=== PATIENT | male | born 1960 | race Caucasian/White ===

== ENCOUNTER 2023-02-27 18:43 | Inpatient (IN) | payer OTHER, MEDICAID ==
[~2023-02-27] VITALS: Ht 172.7 cm; Wt 67.1 kg
[2023-02-27] MEDS: NACL 0.9% 1,000 ML IV SCH (01:33)
[2023-02-27 18:47] VITALS: BP 143/74; PULSE 130; RESP 24; TEMP 101; O2SAT 100
--- NOTE | 2023-02-27 18:47 | NUR ---
BIBA TO BED #4
--- NOTE | 2023-02-27 18:47 | NUR ---
PT PLACED IN BED 04
[2023-02-27] MEDS ORDERED: ACETAMINOPHEN 650 MG SUPP RC ONE (19:15)
[2023-02-27] MEDS ORDERED: NACL 0.9% 2,000 ML IV SCH (19:15)
[2023-02-27] MEDS ORDERED: PIPERACILLIN/TAZOBACTAM 3.375 GM in DEXTROSE 5% 50 ML IV ONE (19:15)
--- NOTE | 2023-02-27 19:27 | NUR ---
Patient noted to have existing wounds upon arrival to ER. Photos taken of wound and placed in chart. Physician informed.
[2023-02-27 19:32] LABS: BASOPHILS % (AUTO) 0.3 % (0.0-2.0); EOSINOPHILS % (AUTO) 0.3 % (0.0-4.0); HEMATOCRIT 38.9 % (36-52); HEMOGLOBIN 13.2 g/dL (12.0-18.0); LYMPHOCYTES # (AUTO) 1.8 K/uL (2.0-11.5); LYMPHOCYTES % (AUTO) 11.3 % (20.5-51.1); MEAN CORPUSCULAR HEMOGLOBIN 27 pg (27-31); MEAN CORPUSCULAR HGB CONC 34 g/dL (33-37); MEAN CORPUSCULAR VOLUME 79.8 fL (80-94); MONOCYTES # (AUTO) 0.8 K/uL (0.8-1.0); MONOCYTES % (AUTO) 5.1 % (1.7-9.3); NEUTROPHILS # (AUTO) 12.8 K/uL (1.8-7.7); PLATELET COUNT (AUTO) 411 K/uL (140-450); RED BLOOD CELL COUNT(AUTO) 4.88 MIL/uL (4.20-6.10); RED CELL DISTRIBUTION WIDTH 16.1 % (11.6-13.7); WHITE BLOOD COUNT (AUTO) 15.5 K/uL (4.8-10.8)
--- NOTE | 2023-02-27 19:32 | NUR ---
62 Y/O M[facility], STAFF CALLED [facility] FOR PT TO BE EVALUATED FOR SEPSIS DUE TO "FEVER FOR 15 MINUTES TODAY". SKIN IS PINK/HOT/DIAPHORETIC; PT RESPONDS TO PAIN/ABNORMAL FLEXION/NONVERBAL. HR EVEN AND TACHY AT 130; PT HAS WOUND ON LEFT ANKLE, UNSTAGEABLE, PT HAS REDNESS ON SACRAL AREA. PT HAS GASTROSTOMY TUBE IN PLACE WITH ABD BINDER. PATIENT POSITIONED FOR COMFORT; HOB ELEVATED; BEDRAILS UP X2; BED DOWN. ER MD MADE AWARE OF PT STATUS. PMH: TRAUMATC SUBDURAL HEMORRHAGE, CELLULITIS FACE, HTN, GASTROSTOMY, CORONARY ANGIOPLASTY, ENCEPHALOPATHY NKA
--- NOTE | 2023-02-27 19:35 | NUR ---
Patient resting in bed, awake and confused, chest rise and fall symmetrical, no s/s of pain and no s/s of distress, on monitor. Addendum: 02/28/23 at 0045 by [id number] Patient resting in bed, awake and confused, chest rise and fall symmetrical, no s/s of pain and no s/s of distress, on monitor, g-tube flushed and patent.
--- NOTE | 2023-02-27 19:35 | NUR ---
X-Ray at bedside.
--- NOTE | 2023-02-27 19:39 | NUR ---
Pt report given to JUSTINA JUSTIN. Transfer of care at this time.
[2023-02-27 19:48] LABS: PROTHROMBIN TIME 10.6 secs (10.8-13.4)
[2023-02-27 19:49] LABS: ANION GAP 16.1 (8-16); CARBON DIOXIDE 23.8 mmol/L (21-32); CREATININE 0.7 mg/dL (0.6-1.3); POTASSIUM 3.9 mmol/L (3.5-5.1); TOTAL BILIRUBIN 0.8 mg/dL (0.0-1.0)
[2023-02-27] MEDS ORDERED: PIPERACILLIN/TAZOBACTAM 3.375 GM VIAL IV ONE (20:16)
[2023-02-27 20:19] LABS: APPEARANCE,URINE CLEAR (CLEAR); BILIRUBIN,URINE NEGATIVE (NEGATIVE); BLOOD, URINE 2+ (NEGATIVE); COLOR,URINE YELLOW (YELLOW); LEUKOCYTE ESTERASE ,URINE NEGATIVE (NEGATIVE); NITRITE, URINE NEGATIVE (NEGATIVE); PH,URINE 6.5 (5.0-9.0); UGLUCOSE NEGATIVE (NEGATIVE)
[2023-02-27 20:29] LABS: RBC,URINE 20-50 /HPF (0-5); URINE AMORPHOUS URATE 2+ /HPF (None Seen)
[2023-02-27] MEDS ORDERED: THIA100T45 PO (21:52)
[2023-02-27] MEDS ORDERED: [UNRECOGNIZED DRUG - CODE] INH (21:52)
[2023-02-27] MEDS ORDERED: SENN-72 PO (21:52)
[2023-02-27] MEDS ORDERED: PUL.25N NEB (21:52)
[2023-02-27] MEDS ORDERED: DOCU-299 PO (21:52)
[2023-02-27] MEDS ORDERED: FAMO-90 PO (21:52)
[2023-02-27] MEDS ORDERED: MULT-2171 PO (21:52)
[2023-02-27] MEDS ORDERED: ACET-8905 PO (21:52)
[2023-02-27] MEDS ORDERED: PROP20TA29 PO (21:52)
--- NOTE | 2023-02-27 22:04 | NUR ---
Dr. Padron at bedside speaking with patient's .
--- NOTE | 2023-02-27 23:00 | NUR ---
Patient resting in bed, awake, chest rise and fall symmetrical, no s/s of pain and no s/s of distress, on monitor. Addendum: 02/28/23 at 0046 by [email or web address] Amendment undone in EDM - 02/28/23 at 0047 by [email or web address] Patient resting in bed, awake and confused, chest rise and fall symmetrical, no s/s of pain and no s/s of distress, on monitor. Addendum: 02/28/23 at 0046 by [email or web address] Patient resting in bed, awake, chest rise and fall symmetrical, no s/s of pain and no s/s of distress, on monitor, gtube flushed and patent.
[2023-02-27] MEDS ORDERED: NACL 0.9% 1,000 ML IV ONE (23:10)
[2023-02-27] MEDS ORDERED: guaiFENesin DM 200/20 MG-10 ML 10 ML UDC PO PRN ×2 (23:20→23:30)
[2023-02-27] MEDS ORDERED: NACL 0.9% 1,000 ML IV SCH (23:20)
[2023-02-27] MEDS ORDERED: DOCUSATE SODIUM 100 MG GELCAP PO PRN ×2 (23:20→23:30)
[2023-02-27] MEDS ORDERED: ONDANSETRON 4 MG/2 ML VIAL IM/IVP PRN ×2 (23:20→23:30)
[2023-02-27] MEDS ORDERED: ACETAMINOPHEN 325 MG TAB PO PRN ×2 (23:20→23:30)
[2023-02-27] MEDS ORDERED: ZOLPIDEM 5 MG TAB PO PRN ×2 (23:20→23:30)
[2023-02-27] MEDS ORDERED: POTASSIUM CHLORIDE 10 MEQ TABER PO PRN ×2 (23:20→23:30)
[2023-02-27] MEDS ORDERED: HYDROcodone/APAP 7.5/325 MG 1 TAB PO PRN ×2 (23:20→23:30)
[2023-02-27] MEDS ORDERED: VANCOMYCIN PER PHARMACY MC ONE (23:25)
[2023-02-27] MEDS ORDERED: ALBUTEROL SULFATE/IPRATROPIU 3 ML SOL IH PRN ×2 (23:30→23:45)
[2023-02-27 23:48] LABS: MAGNESIUM 1.6 mg/dL (1.8-2.4); PHOSPHORUS 4.6 mg/dL (2.5-4.9)
--- NOTE | 2023-02-28 00:03 | NUR ---
Patient resting in bed, awake, chest rise and fall symmetrical, no s/s of pain and no s/s of distress, on monitor. Addendum: 02/28/23 at 0047 by [email or web address] Patient resting in bed, awake, chest rise and fall symmetrical, no s/s of pain and no s/s of distress, on monitor, gtube flushed and patent.
[2023-02-28 00:30] VITALS: PULSE 89; RESP 18; O2SAT 94
--- NOTE | 2023-02-28 00:30 | NUR ---
PT WAS ADMITTED TO [facility] DEPARTMENT FROM [facility] WITH DIAGNOSIS OF SEPSIS SECONDARY TO PNA. PT IS NON-VERBAL, WITH DURING THE TRANSFER, BEDBOUND AND ABLE TO FOLLOW COMMAND. PT IS ON 2L NC AND ON NPO EXCEPT MEDS DIET. PT HAS CANADA CATHETER, G-TUBE AND TRAY DELIVERY AIDE SHUNT. PT HAS LEFT HAND GAUGE 20 SALINE LOCK AND RIGHT FOREARM GAUGE 20 SALINE LOCK. PT HAS UNSTAGABLE ULCER ON LEFT HEEL, OPEN WOUND ON SACRAL, REDNESS ON LEFT BUTTOCKS AND SCAB ON UPPER BACK. SHAQ() WAS ASKED FOR THE ADMISSION QUESTION OF THE PT. PT WAS ORIENTED TO ROOM/HOSPITAL AND CALL LIGHT. ALL SAFETY MEASURES IMPLEMENTED, BED IN LOW POSITION, BED WHEELS ON LOCK AND CALL LIGHT WITHIN REACH.
--- NOTE | 2023-02-28 00:30 | NUR ---
Patient will be admitted to care of Dr. Stephen. Admited to Telemetry. Will go to room 108B. Belongings list completed. Report to Anuradha JUSTIN. Telemetry Nurse Anuradha JUSTIN verbalized understanding of report, no further questions.
[2023-02-28] MEDS ORDERED: PIPERACILLIN/TAZOBACTAM 3.375 GM VIAL IV ONE (02:40)
[2023-02-28] MEDS: PIPERACILLIN/TAZOBACTAM 3.375 GM in DEXTROSE 5% 50 ML IV SCH ×4 (02:54→20:08)
--- NOTE | 2023-02-28 02:54 | NUR ---
SCHEDULED AND PRESCRIBED MEDICATION WAS GIVEN TO PT PER MD ORDER. ALL SAFETY MEASURES IMPLEMENTED, BED IN LOW POSITION, BED WHEELS ON LOCK AND CALL LIGHT WITHIN REACH.
[2023-02-28] MEDS ORDERED: VANCOMYCIN 1GM/DEXT 5% PREMIX 200 ML IV SCH (03:30)
[2023-02-28 04:00] VITALS: BP 127/68; PULSE 82; PULSE 85; RESP 18; TEMP 98.2; O2SAT 97
--- NOTE | 2023-02-28 04:00 | NUR ---
MORNING CARE WAS DONE TO PT. CHANGED GOWN, LINENS AND BLANKET. ALSO, EMPTY THE CANADA CATHETER WITH 450ML. ALL SAFETY MEASURES IMPLEMENTED, BED IN LOW POSITION, BED WHEELS ON LOCK AND CALL LIGHT WITHIN REACH.
[2023-02-28 06:38] LABS: BASOPHILS % (AUTO) 0.2 % (0.0-2.0); EOSINOPHILS % (AUTO) 0.1 % (0.0-4.0); HEMATOCRIT 33.3 % (36-52); HEMOGLOBIN 10.6 g/dL (12.0-18.0); LYMPHOCYTES # (AUTO) 2.8 K/uL (2.0-11.5); LYMPHOCYTES % (AUTO) 13.5 % (20.5-51.1); MEAN CORPUSCULAR HEMOGLOBIN 26 pg (27-31); MEAN CORPUSCULAR HGB CONC 32 g/dL (33-37); MEAN CORPUSCULAR VOLUME 82.7 fL (80-94); MONOCYTES # (AUTO) 0.9 K/uL (0.8-1.0); MONOCYTES % (AUTO) 4.4 % (1.7-9.3); NEUTROPHILS # (AUTO) 17.2 K/uL (1.8-7.7); NEUTROPHILS % (AUTO) 81.8 % (42.2-75.2); PLATELET COUNT (AUTO) 334 K/uL (140-450); RED BLOOD CELL COUNT(AUTO) 4.02 MIL/uL (4.20-6.10); RED CELL DISTRIBUTION WIDTH 16.2 % (11.6-13.7)
[2023-02-28 06:47] LABS: ALBUMIN 2.3 g/dL (3.4-5.0); ANION GAP 13.5 (8-16); CARBON DIOXIDE 23.8 mmol/L (21-32); CREATININE 0.8 mg/dL (0.6-1.3); POTASSIUM 4.3 mmol/L (3.5-5.1); TOTAL BILIRUBIN 1.1 mg/dL (0.0-1.0)
[2023-02-28] MEDS ORDERED: ALBUTEROL SULFATE/IPRATROPIU 3 ML SOL IH SCH (07:00)
--- NOTE | 2023-02-28 07:21 | NUR ---
PT IS STABLE. ENDORSED PT TO MORNING SHIFT NURSE FOR CONTINUITY OF CARE.
--- NOTE | 2023-02-28 07:25 | NUR ---
GOT REPORT FROM NIGHT NURSE, PT SLEEPING.[id number]
[2023-02-28] MEDS: VANCOMYCIN 1,000 MG in DEXTROSE 5% 250 ML IV SCH ×2 (07:50→21:22)
[2023-02-28 08:00] VITALS: BP 137/75; PULSE 89; PULSE 91; RESP 18; TEMP 98.8; O2SAT 94; O2SAT 96
[2023-02-28] MEDS ORDERED: PIPERACILLIN/TAZOBACTAM 3.375 GM in DEXTROSE 5% 50 ML IV SCH ×4 (09:00)
[2023-02-28] MEDS ORDERED: VANCOMYCIN PER PHARMACY MC SCH ×2 (09:00)
[2023-02-28] MEDS ORDERED: PANTOPRAZOLE 40 MG TABEC PO SCH ×2 (09:00)
--- NOTE | 2023-02-28 09:04 | NUR ---
PATIENT HAS BEEN SCREENED AND CATEGORIZED HIGH NUTRITION RISK. PATIENT WILL BE SEEN WITHIN 1-2 DAYS OF ADMISSION. 02/28/23-03/01/[address]
[2023-02-28] MEDS ORDERED: PANTOPRAZOLE 40 MG INJ VIAL IVP SCH (10:37)
[2023-02-28 12:00] VITALS: BP 147/77; PULSE 89; PULSE 94; RESP 18; TEMP 99.7; O2SAT 95
[2023-02-28] MEDS: ALBUTEROL SULFATE/IPRATROPIU 3 ML SOL IH SCH ×2 (12:22→19:00)
[2023-02-28] MEDS: NACL 0.9% 1,000 ML IV SCH (14:01)
--- NOTE | 2023-02-28 15:59 | NUR ---
02/28/23 RD INITIAL ASSESSMENT COMPLETED PLEASE REFER TO NUTRITION ASSESSMENT UNDER CARE ACTIVITY FOR ESTIMATED NUTRITIONAL NEEDS. 1. CONTINUE NPO DIET TOLERATED AND ADVANCE TO PUREE ONCE MEDICALLY APPROPRIATE. IF PATIENT DOES WELL ADVANCE TO REGULAR DIET. 2. RD RECOMMENDS PO INTAKE ULTIMATE GOAL IF MEDICALLY APPROPRIATE. IF TUBE FEEDING RECOMMENDATION IS NEEDED PATIENT CAN BE ON JEVITY @60ML/HR WITH FWF OF 200ML Q6H. THIS WILL PROVIDE 1,728 CALORIES AND 77 GRAMS OF PROTEIN MEETING AT LEAST 75% OF ESTIMATED NUTRITIONAL NEEDS. 3. RD TO FOLLOW-UP 2-3 DAYS, HIGH RISK YESI COX RD
[2023-02-28 16:00] VITALS: BP 106/56; PULSE 77; PULSE 79; RESP 18; TEMP 98.6; O2SAT 99
--- NOTE | 2023-02-28 17:15 | NUR ---
did bedside swallow and patient passed the swallow evaluation had one cup of apple sauce and one pudding without any problem, the son at bedside.[email or web address]
--- NOTE | 2023-02-28 18:20 | NUR ---
pt experiencing sundown syndrome , started to cry while talking to his son, reassured comfort measures applied.[email or web address]
--- NOTE | 2023-02-28 19:27 | NUR ---
GAVE REPORT TO THE NIGHT NURSE, PT STABLE ,NO DISCOMFORT.[email or web address]
[2023-02-28] MEDS: BUDESONIDE 0.25 MG/2 ML NEBU INH SCH (19:30)
[2023-02-28 20:00] VITALS: BP 115/70; PULSE 82; PULSE 85; RESP 18; RESP 20; TEMP 98.8; O2SAT 94
[2023-02-28] MEDS ORDERED: ARFORMOTEROL TARTRATE INH SCH (21:00)
[2023-02-28] MEDS: DOCUSATE 100 MG/10 ML UDC GT SCH (22:21)
[2023-02-28] MEDS: PROPRANOLOL 20 MG TAB PO SCH (22:22)
[2023-02-28] MEDS ORDERED: VANCOMYCIN PER PHARMACY MC PRN (23:25)
[2023-03-01] VITALS (9 sets, daily range): BP systolic 100–132; BP diastolic 54–79; PULSE 74–117; RESP 16–20; TEMP 97.8–98.9; O2SAT 92–98
[2023-03-01] MEDS: NACL 0.9% 1,000 ML IV SCH ×3 (00:01→20:01)
[2023-03-01] MEDS: PIPERACILLIN/TAZOBACTAM 3.375 GM in DEXTROSE 5% 50 ML IV SCH ×4 (04:00→20:37)
--- NOTE | 2023-03-01 04:15 | NUR ---
STILL AWAKE - REFUSED AMBIEN - WILL CONT. TO MONITOR .
[2023-03-01] MEDS ORDERED: OLANZapine 5 MG TAB GT SCH ×2 (04:40→05:46)
--- NOTE | 2023-03-01 05:00 | NUR ---
BECOMES AGITATES , TRIED TO PULL OUT THE CANADA CATH , AND G TUBE , AND IV LINE , KEEP REMOVING THE O2 CANULLA - WILL RFER TO DR. MINER . Addendum: 03/01/23 at 0747 by Velma Marie RN AT 0555 - ZYPREXA 5MG / TAB GIVEN THRU G TUBE ORDERED , WILL CONT. TO MONITOR .
--- NOTE | 2023-03-01 05:46 | NUR ---
CAN'T SCAN THE ZYPREXA , WILL CALL TO PHARMACIST - WILL CONT. TO MONITOR .
[2023-03-01 06:42] LABS: BASOPHILS % (AUTO) 0.2 % (0.0-2.0); EOSINOPHILS # (AUTO) 0.2 K/uL (0-0.4); EOSINOPHILS % (AUTO) 2.3 % (0.0-4.0); HEMATOCRIT 32.4 % (36-52); HEMOGLOBIN 10.6 g/dL (12.0-18.0); LYMPHOCYTES # (AUTO) 1.4 K/uL (2.0-11.5); LYMPHOCYTES % (AUTO) 13.5 % (20.5-51.1); MEAN CORPUSCULAR HEMOGLOBIN 27 pg (27-31); MEAN CORPUSCULAR HGB CONC 33 g/dL (33-37); MEAN CORPUSCULAR VOLUME 81.7 fL (80-94); MONOCYTES # (AUTO) 0.8 K/uL (0.8-1.0); MONOCYTES % (AUTO) 7.8 % (1.7-9.3); NEUTROPHILS # (AUTO) 7.9 K/uL (1.8-7.7); NEUTROPHILS % (AUTO) 76.2 % (42.2-75.2); PLATELET COUNT (AUTO) 314 K/uL (140-450); RED BLOOD CELL COUNT(AUTO) 3.96 MIL/uL (4.20-6.10); WHITE BLOOD COUNT (AUTO) 10.3 K/uL (4.8-10.8)
[2023-03-01] MEDS: ALBUTEROL SULFATE/IPRATROPIU 3 ML SOL IH SCH ×3 (07:00→19:26)
[2023-03-01 07:01] LABS: ALBUMIN 2.4 g/dL (3.4-5.0); ANION GAP 11.6 (8-16); CARBON DIOXIDE 25.7 mmol/L (21-32); CREATININE 0.6 mg/dL (0.6-1.3); POTASSIUM 3.3 mmol/L (3.5-5.1); TOTAL BILIRUBIN 0.9 mg/dL (0.0-1.0)
--- NOTE | 2023-03-01 07:26 | NUR ---
ENDORSED PT FOR CONT. OF CARE .
--- NOTE | 2023-03-01 07:26 | NUR ---
ASSUMED CONTINUITY OF CARE. INITIAL ASSESSMENT DONE. RE-ORIENTED TO EVENTS AND SURROUNDINGS. HOB ELEVATED. KEEP COMFORTABLE ON BED. FALL PRECAUTION APPLIED. CALL LIGHT WITHIN REACH.
[2023-03-01] MEDS: BUDESONIDE 0.25 MG/2 ML NEBU INH SCH ×2 (07:30→19:26)
[2023-03-01] MEDS: VANCOMYCIN 1,000 MG in DEXTROSE 5% 250 ML IV SCH ×2 (08:04→20:38)
[2023-03-01] MEDS: MULTIVITAMIN 1 TAB GT SCH (08:51)
[2023-03-01] MEDS: DOCUSATE 100 MG/10 ML UDC GT SCH ×2 (08:51→20:37)
[2023-03-01] MEDS: THIAMINE 100 MG TAB GT SCH (08:51)
[2023-03-01] MEDS: POTASSIUM CHLORIDE 20% 40 MEQ/15 ML UDC GT PRN (08:52)
[2023-03-01] MEDS: PROPRANOLOL 20 MG TAB PO SCH ×2 (08:52→20:37)
[2023-03-01] MEDS ORDERED: SENNA 8.6 MG TAB GT PRN (09:00)
[2023-03-01] MEDS ORDERED: FAMOTIDINE 20 MG TAB PO SCH (09:00)
[2023-03-01] MEDS ORDERED: NON-FORMULARY ITEM (Multivitamin (Multiple Vitamins) 1 TAB) PO SCH (09:00)
[2023-03-01] MEDS: PANTOPRAZOLE 40 MG INJ VIAL IVP SCH (09:12)
--- NOTE | 2023-03-01 09:14 | NUR ---
DR. BRODY CAME AND SEEN PT..
--- NOTE | 2023-03-01 09:25 | NUR ---
WOUND CARE NURSE MARII CAME AND PROVIDED SKIN CARE AND WOUND CARE WITH ASSISTANCE FROM BRENDON MENA.
--- NOTE | 2023-03-01 11:22 | NUR ---
WOUND CARE NOTE: SKIN ASSESSMENT DONE ON THIS 62 Y/O PT. PT. ADMITTED WITH FEVER AND PRESSURE INJURIES. PAST MEDICAL HX OF TBI COMPLICATED BY SALES ENABLEMENT MANAGER SHUNT IN PLACE, HYPERTENSION, DYSPHAGIA WITH CHRONIC G-TUBE PLACEMENT AND PREVIOUSLY ADMITTED TO [facility] IN 12/2022 FOR SALES ENABLEMENT MANAGER SHUNT REPLACEMENT. ALL ABOVE INFORMATION OBTAIN FROM ADMISSION H&P, CHART REVIEW. PT. TF, SKIN IS WARM AND DRY, BILATERAL LOWER EXTREMITY NO EDEMA. DORSAL PEDAL PULSES PRESENT AND NORMAL. CAPILLARY REFILLED <2 SEC. F/C PATENT WITH SMALL AMOUNT BHAVIN COLOR URINE OUT PUT OBSERVED. GERDA SCALE AT HI RISK FOR DEVELOP NEW PRESSURE INJURY. PLAN OF CARE DISCUSSED WITH PRIMARY NURSE AND CHARGE NURSE. INTEGUMENTARY: -GT SITE, SABRINA-STOMA SKIN DRY AND CLEAN. 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 SURROUNDING NON-BLANCHABLE REDNESS EXTENDED TO LEFT BUTTOCK INDICATED FURTHER DAMAGE. -MASD TO RIGHT AND LEFT LOWER BUTTOCKS SKIN MOIST, LEFT BUTTOCK NON-BLANCHABLE REDNESS -PRESSURE INJURY UN-STAGEABLE LEFT HEEL 3X2CM STABLE ESCHAR TISSUE, SABRINA-WOUND SKIN DRY SCALY -BLE MULTIPLE DRY STABLE SCABS RECOMMENDATIONS: -CLEANSE SABRINA-ANAL AND BUTTOCKS WITH NS, PAT DRY, APPLY Z GUARD BID AND MICHELLE -CLEANSE COCCYX WOUNDS WITH NS, PAT DRY, APPLY HYDROGEL TO WOUND BED AND COVER WITH DRY DRESSING QD AND PRN IF SOILING -PAINT LEFT HEEL WITH BETADINE SWAP STICK BID AND KENO WRITER / RUNNER -HEEL RAISERS TO BILATERAL HEELS WITH OFFLOADING -POSITIONING: TURN AND REPOSITION PATIENT Q 2H OR SOONER USE PILLOWS TO KEEP BONY PROMINENCES FROM DIRECT CONTACT WITH SURFACES USE REPOSITIONING WEDGES TO PROVIDE 30-DEGREE ANGLE FOR SIDE LYING POSITIONS OFFLOADING OR FOAM DRESSING TO ALL TUBING TO PREVENT MEDICAL DEVICES RELATED PRESSURE INJURY -RE-EVALUATING AND MANAGING INCONTINENCE MONITOR SKIN CONDITION DURING POSITION CHANGE DO NOT MASSAGE REDNESS, BONY PROMINENCES FREQUENT SABRINA-CARE AND PROVIDE BARRIER CREAMS PRN IF SOILING MOISTURE CONTROL BY SUPRAPUBIC CATH, ABSORBENT PAD TO WICK AND HOLD MOISTURE KEEP SKIN DRY AND PROTECT FROM FRICTION -MANAGE FRICTION/SHEAR/MOBILITY KEEP HOB AT THE LOWEST LEVEL OF ELEVATION NO MORE THAN 30 DEGREE UNLESS OTHERWISE CONTRAINDICATED USE LIFT SHEET OR TRANSFER DEVICE TO MOVE PATIENT AND PREVENT LATERAL SHEER. PROTECT HEELS, ELBOWS BONY PROMINENCES WITH SKIN BERRIES OR FOAM DRESSING IF EXPOSED TO FRICTION OFFLOAD BILATERAL HEELS BY PLACING PILLOWS UNDER CALVES AT ALL TIMES, UNLESS OTHERWISE CONTRAINDICATED -PRESSURE REDISTRIBUTION SURFACE THERAPY PASTORA ISOFLEX GERSON MATTRESS -NUTRITION: PLEASE FOLLOW RD RECOMMENDATIONS AND OFFER NUTRITION SUPPLEMENTS IF ORDERED.
[2023-03-01] MEDS ORDERED: SKINTEGRITY HYDROGEL TP PRN (11:25)
--- NOTE | 2023-03-01 11:49 | NUR ---
DC PLANNING A 62 YO MALE PATIENT RESIDENT OF [facility] ADMITTED TO TELEMETRY FOR SEPSIS, PNEUMONIA ,DYSPHAGIA WITH G-TUBE AND SACRAL ULCER .PAST MEDICAL HX MANAGER GENERATION SHUNT REPLACEMENT AT [facility] 12/2022,HTN,DYSPHAGIA WITH CHRONIC G-TUBE PLACEMENT.CXR- SUGGESTIVE OF BILATERAL LUNG INFILTRATES CONCERNING FOR PNEUMONIA.ON ZOSYN AND VANCOMYCIN. HEAD CT SCAN -RIGHT OCCIPITAL MANAGER GENERATION SHUNT AND BILATERAL 3RD HYDROCEPHALUS.LEFT FOOT X RAY WITH SOFT TISSUE SWELLING.PODIATRY WAS CONSULTED. DC PLAN - WANTS TO TAKE PATIENT HOME .DR. BRODY NOTIFIED AND REQUESTED FOR ORDER FOR HOME HEALTH VISIT WITH PT AND NEED FOR HOSPITAL BED,JAY LIFT,WALKER AND OXYGEN SETUP.WOUND CARE ON BOARD WELL.CM TO FOLLOW. Addendum: 03/04/23 at 1250 by LIGIA VICK CM RECEIVED ORDER FOR PATIENT TO GET HOME HEALTH FOR WOUND CARE AND PT. WELL TO ORDER A JAY LIFT, HOSPITAL BED, WHEELCHAIR, BEDSIDE COMMODE, AIR MATTRESS, AND TUBE FEEDING SUPPLIES. FAXED ALL PAPERWORK [facility] Addendum: 03/04/23 at 1539 by DUANE LARSON CM DC PLANNING PATIENT IS AWAKE.RESPONDS APPROPRIATELY AT TIMES BUT FIDGETING.ON ROOM AIR.DAUGHTER AT BEDSIDE.ORDER FOR DISCHARGE IN PLACE PENDING DELIVERY OF EQUIPMENT AND FEEDING SUPPLEMENTS. AT BEDSIDE AND UPDATED OF PROGRESS OF ABOVE SUPPLIES. SISSY, FROM [facility] PROCESSING THE REQUEST.CM TO FOLLOW. Addendum: 03/05/23 at 1631 by DUANE LARSON CM DC PLANNING SISSY AND ANTONIO FROM [facility] WORKING ON GETTING HOSPITAL BED AND OTHER EQUIPMENT AND SUPPLIES FOR HOME CARE.TEAM NURSES TO DO HOME HEALTH VISIT AUTH #[id number] . SHAQ GETTING UPDATES FROM [facility] REGARDING ETA OF HOSPITAL BED AND OTHER DME.CM TO FOLLOW. Addendum: 03/06/23 at 1136 by LIGIA VICK CM RECEIVED DISCHARGE ORDER FOR PATIENT TO GO HOME. TRANSPORTATION ARRANGED WITH [facility] WITH A 1400 CROZE MACHINE OPERATOR TIME. CHARGE NURSE STELLA AND SHAQ AWARE OF THE ABOVE INFORMATION. Addendum: 03/06/23 at 1402 by DUANE LARSON CM DC PLANNING HOSPITAL BED, AIR MATTRESS, OTHER EQUIPMENT AND SUPPLIES REQUESTED BY DELIVERED LAST NIGHT AT PATIENT'S ADDRESS.HOME MEDS ELECTRONICALLY SIGNED BY DR. LOREDO AT [facility] [employer].CROZE MACHINE OPERATOR TIME BY [facility] AT 2PM.HOSPITAL STAY AUTH# [id number] PROVIDED BY JOANN AT [facility] FOLEY ARTIST TO ENTER AT [facility]. Addendum: 03/06/23 at 1430 by DUANE LARSON CM LATE ENTRY TEAM NURSES [facility] TO SEE PATIENT.WILL CALL TO INFORM PATIENT WILL BE DISCHARGED TODAY. Addendum: 03/06/23 at 1435 by DUANE LARSON LATE ENTRY ABOVE PHONE NUMBER IS [facility] FOR HOSPITAL BED ,AIR MATTRESS AND OTHER EQUIPMENTS.TEAM NURSES INFORMED OF PATIENT'S DISCHARGE..
[2023-03-01] MEDS: SKINTEGRITY HYDROGEL TP SCH (13:00)
[2023-03-01] MEDS ORDERED: Z-GUARD PASTE TP SCH (13:00)
[2023-03-01] MEDS: Z-GUARD PASTE TP SCH (13:00)
[2023-03-01] MEDS: GAUZE TP SCH (13:00)
--- NOTE | 2023-03-01 16:30 | NUR ---
PT. -SHAQ CAME AND REMAINED AT PT. BEDSIDE.
--- NOTE | 2023-03-01 18:42 | NUR ---
CAME BACK FROM [place] [facility]IA [place]. IN STABLE CONDITION. KEEP COMFORTABLE ON BED.
--- NOTE | 2023-03-01 19:21 | NUR ---
REPORT GIVEN TO STEPHAN PARKINSON. IN STABLE CONDITION. IVF INFUSING WELL.
--- NOTE | 2023-03-01 19:30 | NUR ---
RECEIVED REPORT FROM DAY SHIFT NURSE FOR CONTINUITY OF CARE. PT IS AWAKE RESTING IN BED. PT IS AAOX2 TO NAME AND DATE OF . CONFUSED OTHERWISE. NOT IN ANY DISTRESS. BREATHING EVEN AND UNLABORED. ON 2L NC. PT HAS RIGHT WRIST 20 GAUGE RUNNING NS 100 CC/HR. PT HAS GTUBE IN PLACE. PT PASSED SWALLOW EVAL AND IS ON [facility] SOFT DIET. PT HAS FC IN PLACE DRAINING TO GRAVITY.
[2023-03-02] VITALS (9 sets, daily range): BP systolic 110–142; BP diastolic 58–81; PULSE 70–82; RESP 16–20; TEMP 97.8–98.5; O2SAT 92–97
--- NOTE | 2023-03-02 00:15 | NUR ---
OBSERVED PT. PT IS SLEEPING COMFORTABLY IN BED. NOT IN ANY DISTRESS. BREATHING EVEN AND UNLABORED. WILL CONTINUE TO MONITOR THE PT.
[2023-03-02] MEDS: Z-GUARD PASTE TP SCH ×2 (01:05→15:58)
[2023-03-02] MEDS: NACL 0.9% 1,000 ML IV SCH ×2 (02:19→15:48)
[2023-03-02] MEDS: PIPERACILLIN/TAZOBACTAM 3.375 GM in DEXTROSE 5% 50 ML IV SCH ×4 (03:05→20:13)
[2023-03-02 06:43] LABS: BASOPHILS % (AUTO) 0.3 % (0.0-2.0); EOSINOPHILS # (AUTO) 0.4 K/uL (0-0.4); EOSINOPHILS % (AUTO) 4.9 % (0.0-4.0); HEMATOCRIT 31.4 % (36-52); HEMOGLOBIN 10.4 g/dL (12.0-18.0); LYMPHOCYTES # (AUTO) 1.6 K/uL (2.0-11.5); LYMPHOCYTES % (AUTO) 20.5 % (20.5-51.1); MEAN CORPUSCULAR HEMOGLOBIN 27 pg (27-31); MEAN CORPUSCULAR HGB CONC 33 g/dL (33-37); MEAN CORPUSCULAR VOLUME 81.3 fL (80-94); MONOCYTES # (AUTO) 0.8 K/uL (0.8-1.0); NEUTROPHILS # (AUTO) 5.1 K/uL (1.8-7.7); NEUTROPHILS % (AUTO) 64.3 % (42.2-75.2); PLATELET COUNT (AUTO) 337 K/uL (140-450); RED BLOOD CELL COUNT(AUTO) 3.86 MIL/uL (4.20-6.10); RED CELL DISTRIBUTION WIDTH 16.2 % (11.6-13.7); WHITE BLOOD COUNT (AUTO) 7.9 K/uL (4.8-10.8)
[2023-03-02] MEDS: ALBUTEROL SULFATE/IPRATROPIU 3 ML SOL IH SCH ×3 (07:11→19:14)
[2023-03-02] MEDS: BUDESONIDE 0.25 MG/2 ML NEBU INH SCH ×2 (07:12→19:14)
[2023-03-02 07:20] LABS: ALBUMIN 2.4 g/dL (3.4-5.0); ANION GAP 13.2 (8-16); CARBON DIOXIDE 23.2 mmol/L (21-32); CREATININE 0.6 mg/dL (0.6-1.3); POTASSIUM 3.4 mmol/L (3.5-5.1); TOTAL BILIRUBIN 0.9 mg/dL (0.0-1.0)
--- NOTE | 2023-03-02 07:22 | NUR ---
ENDORSED PT TO DAY SHIFT RN FOR CONTINUITY OF CARE. PT IS STABLE.
--- NOTE | 2023-03-02 07:23 | NUR ---
RECEIVED ENDORSEMENT FROM DYE TUB TENDER NURSE FOR CONTINUITY OF CARE. PT IS STABLE, CALL LIGHT WITHIN REACH.
[2023-03-02] MEDS: PROPRANOLOL 20 MG TAB PO SCH ×2 (08:22→21:19)
[2023-03-02] MEDS: MULTIVITAMIN 1 TAB GT SCH (08:22)
[2023-03-02] MEDS: THIAMINE 100 MG TAB GT SCH (08:22)
[2023-03-02] MEDS: DOCUSATE 100 MG/10 ML UDC GT SCH ×2 (08:22→21:19)
[2023-03-02] MEDS: PANTOPRAZOLE 40 MG INJ VIAL IVP SCH (08:23)
[2023-03-02] MEDS: VANCOMYCIN 1,000 MG in DEXTROSE 5% 250 ML IV SCH ×2 (08:30→21:19)
--- NOTE | 2023-03-02 15:00 | NUR ---
CALLED PHARMACY REGARDING SKINTEGRITY HYDROGEL'S BAR CODE. ZACHARY CAME TO CHECK AND INFORMED ME TO DO IT MANUALLY WHILE THEY FIX IT ON THEIR END.
[2023-03-02] MEDS: SKINTEGRITY HYDROGEL TP SCH (15:59)
[2023-03-02] MEDS: GAUZE TP SCH (17:41)
[2023-03-02] MEDS: POTASSIUM CHLORIDE 20% 40 MEQ/15 ML UDC GT PRN (18:27)
--- NOTE | 2023-03-02 19:04 | NUR ---
GAVE REPORT TO BIOMASS PLANT TECHNICIAN NURSE FOR CONTINUITY OF CARE. PT IS STABLE, NO SIGN OF DISTRESS. CALL LIGHT WITHIN REACH.
--- NOTE | 2023-03-02 19:30 | NUR ---
RECEIVED REPORT FROM DAY SHIFT NURSE FOR CONTINUITY OF CARE. PT IS AWAKE RESTING IN BED. PT IS AAOX2 TO NAME AND DATE OF . CONFUSED OTHERWISE. NOT IN ANY DISTRESS. BREATHING EVEN AND UNLABORED. ON RA SATING 97%. PT HAS RIGHT WRIST 20 GAUGE RUNNING NS 100 CC/HR. PT HAS GTUBE IN PLACE. PT HAS FC IN PLACE DRAINING TO GRAVITY. POC DISCUSSED. WILL CONTINUE TO MONITOR THE PT.
[2023-03-02] MEDS ORDERED: PIPERACILLIN/TAZOBACTAM 3.375 GM VIAL IV ONE (20:02)
[2023-03-03] VITALS (11 sets, daily range): BP systolic 107–144; BP diastolic 59–72; PULSE 63–91; RESP 15–18; TEMP 97.7–98.8; O2SAT 92–99
[2023-03-03] MEDS: NACL 0.9% 1,000 ML IV SCH ×3 (02:01→23:36)
[2023-03-03] MEDS: Z-GUARD PASTE TP SCH ×2 (02:01→13:00)
[2023-03-03] MEDS: PIPERACILLIN/TAZOBACTAM 3.375 GM in DEXTROSE 5% 50 ML IV SCH ×4 (03:11→20:00)
--- NOTE | 2023-03-03 03:20 | NUR ---
OBSERVED PT. PT IS SLEEPING COMFORTABLY IN BED. NOT IN ANY DISTRESS. BREATHING EVEN AND UNLABORED. BED AT THE LOWEST POSITION. HEAD OF THE BED RAISED. WILL CONTINUE TO MONITOR THE PT.
[2023-03-03 06:35] LABS: BASOPHILS % (AUTO) 0.3 % (0.0-2.0); EOSINOPHILS # (AUTO) 0.3 K/uL (0-0.4); EOSINOPHILS % (AUTO) 4.1 % (0.0-4.0); HEMATOCRIT 31.9 % (36-52); HEMOGLOBIN 10.6 g/dL (12.0-18.0); LYMPHOCYTES # (AUTO) 1.9 K/uL (2.0-11.5); LYMPHOCYTES % (AUTO) 24.1 % (20.5-51.1); MEAN CORPUSCULAR HEMOGLOBIN 27 pg (27-31); MEAN CORPUSCULAR HGB CONC 33 g/dL (33-37); MEAN CORPUSCULAR VOLUME 81.1 fL (80-94); MONOCYTES # (AUTO) 0.8 K/uL (0.8-1.0); MONOCYTES % (AUTO) 10.4 % (1.7-9.3); NEUTROPHILS # (AUTO) 4.8 K/uL (1.8-7.7); NEUTROPHILS % (AUTO) 61.1 % (42.2-75.2); PLATELET COUNT (AUTO) 371 K/uL (140-450); RED BLOOD CELL COUNT(AUTO) 3.93 MIL/uL (4.20-6.10); RED CELL DISTRIBUTION WIDTH 15.9 % (11.6-13.7); WHITE BLOOD COUNT (AUTO) 7.9 K/uL (4.8-10.8)
[2023-03-03 06:42] LABS: ALBUMIN 2.4 g/dL (3.4-5.0); ANION GAP 12.6 (8-16); CARBON DIOXIDE 25.9 mmol/L (21-32); CREATININE 0.7 mg/dL (0.6-1.3); POTASSIUM 3.5 mmol/L (3.5-5.1); TOTAL BILIRUBIN 0.8 mg/dL (0.0-1.0)
--- NOTE | 2023-03-03 07:18 | NUR ---
ENDORSED PT TO DAY SHIFT RN FOR CONTINUITY OF CARE. PT IS STABLE.
[2023-03-03] MEDS: BUDESONIDE 0.25 MG/2 ML NEBU INH SCH ×2 (07:33→18:47)
[2023-03-03] MEDS: ALBUTEROL SULFATE/IPRATROPIU 3 ML SOL IH SCH ×3 (07:33→18:35)
[2023-03-03] MEDS: VANCOMYCIN 1,000 MG in DEXTROSE 5% 250 ML IV SCH ×2 (08:55→21:43)
[2023-03-03] MEDS: DOCUSATE 100 MG/10 ML UDC GT SCH ×2 (08:57→22:03)
[2023-03-03] MEDS: PANTOPRAZOLE 40 MG INJ VIAL IVP SCH (08:58)
[2023-03-03] MEDS: THIAMINE 100 MG TAB GT SCH (09:01)
[2023-03-03] MEDS: PROPRANOLOL 20 MG TAB PO SCH ×2 (09:01→22:03)
[2023-03-03] MEDS: MULTIVITAMIN 1 TAB GT SCH (09:02)
[2023-03-03] MEDS: SKINTEGRITY HYDROGEL TP SCH (13:00)
[2023-03-03] MEDS: GAUZE TP SCH (13:00)
--- NOTE | 2023-03-03 14:46 | NUR ---
PER NURSE ENDORSE, PATIENT IS NON-VERBAL; BUT DURING SHIFT, NURSE HEARD PATIENT TALKING SOME NONSENSE; SPOUSE CALLED EARLY AND STATES THAT SHE IS WORKING, AND WILL COME TO SEE PATIENT LATER ON AFTER WORK. WILL CONTINUE TO MONITOR Addendum: 03/03/23 at 1551 by Jena Ruiz RN AT THIS TIME, NON OF PATIENT'S FAMILY COME TO VISIT HIM, AND PATIENT START PULL HIS G-TUBE, PULL HIS TEL. MONITOR LEADS. ON-CALL MD INFORM FOR ATIVAN ORDER TO MODULATE AGITATION. Addendum: 03/03/23 at 1724 by Jena Ruiz RN PATIENT'S , SHQA ([phone]) IS HERE; SHE INFORM NURSE THAT PATIENT'S SUN-MACKENZIE ISSUE, & SHE SUGGEST SENDING ATIVAN ORDER W/ PATIENT WHEN DISCHARGE HOME. ADDITIONALLY, SPOUSE WANTS START TUBE FEEDING ON TOP OF CURRENT DIET ORDER, BUT PLEASE DO NOT ADVANCE TEXTURE TO REGULAR BECAUSE PATIENT HAS NO TOOTH. WILL CONTINUE TO MONITOR. Addendum: 03/03/23 at 1726 by Jena Ruiz RN ALSO, EQUINE SCIENCE INSTRUCTOR, IF POSSIBLE, PLEASE CONTACT ([phone]) REGARDING DISCHARGE PLAN. THANKS Addendum: 03/03/23 at 1931 by Jena Ruiz RN ENDORSE PATIENT IN STABLE CONDITION TO PM SHIFT NURSE WHILE SIGNIFICANT OTHER AT BEDSIDE
--- NOTE | 2023-03-03 14:53 | NUR ---
03/03/23 RD FOLLOW UP COMPLETED.PLEASE REFER TO NUTRITION ASSESSMENT UNDER CARE ACTIVITY FOR ESTIMATED NUTRITIONAL NEEDS. 1. CONTINUE MECHANICAL SOFT DIET TOLERATED AND ADVANCE TO REGULAR WHEN/IF MEDICALLY APPROPRIATE. 2. RECOMMEND ROSA BID FOR WOUNDS (PROVIDES 160 KCAL, 5 GRAMS PROTEIN) PER RD PROTOCOL. 3. RD TO FOLLOW-UP IN 2-3 DAYS PATIENT IS HIGH RISK. MARIA T LARRY RD
[2023-03-03] MEDS: LORazepam 2 MG/ML VIAL IM/IVP PRN (15:58)
[2023-03-04] VITALS (11 sets, daily range): BP systolic 114–124; BP diastolic 60–65; PULSE 74–84; RESP 18–22; TEMP 98–98.7; O2SAT 95–99
[2023-03-04] MEDS: Z-GUARD PASTE TP SCH ×2 (01:08→13:02)
[2023-03-04] MEDS: PIPERACILLIN/TAZOBACTAM 3.375 GM in DEXTROSE 5% 50 ML IV SCH ×2 (04:00→09:57)
--- NOTE | 2023-03-04 05:35 | NUR ---
refused p wound photo on l heel - will endorse.
[2023-03-04 06:56] LABS: BASOPHILS % (AUTO) 0.3 % (0.0-2.0); EOSINOPHILS # (AUTO) 0.3 K/uL (0-0.4); EOSINOPHILS % (AUTO) 3.7 % (0.0-4.0); HEMATOCRIT 31.9 % (36-52); HEMOGLOBIN 10.6 g/dL (12.0-18.0); LYMPHOCYTES # (AUTO) 2.2 K/uL (2.0-11.5); LYMPHOCYTES % (AUTO) 25.1 % (20.5-51.1); MEAN CORPUSCULAR HEMOGLOBIN 27 pg (27-31); MEAN CORPUSCULAR HGB CONC 33 g/dL (33-37); MEAN CORPUSCULAR VOLUME 81.8 fL (80-94); NEUTROPHILS # (AUTO) 5.2 K/uL (1.8-7.7); NEUTROPHILS % (AUTO) 59.9 % (42.2-75.2); PLATELET COUNT (AUTO) 362 K/uL (140-450); RED BLOOD CELL COUNT(AUTO) 3.91 MIL/uL (4.20-6.10); RED CELL DISTRIBUTION WIDTH 15.8 % (11.6-13.7); WHITE BLOOD COUNT (AUTO) 8.7 K/uL (4.8-10.8)
[2023-03-04 06:58] LABS: ALBUMIN 2.4 g/dL (3.4-5.0); ANION GAP 12.7 (8-16); CARBON DIOXIDE 25.4 mmol/L (21-32); CREATININE 0.7 mg/dL (0.6-1.3); POTASSIUM 3.1 mmol/L (3.5-5.1); TOTAL BILIRUBIN 0.6 mg/dL (0.0-1.0)
[2023-03-04] MEDS: ALBUTEROL SULFATE/IPRATROPIU 3 ML SOL IH SCH ×3 (07:36→19:37)
[2023-03-04] MEDS: BUDESONIDE 0.25 MG/2 ML NEBU INH SCH ×2 (07:41→19:44)
[2023-03-04] MEDS: VANCOMYCIN 1,000 MG in DEXTROSE 5% 250 ML IV SCH (08:23)
[2023-03-04] MEDS: NACL 0.9% 1,000 ML IV SCH (08:24)
[2023-03-04] MEDS: PANTOPRAZOLE 40 MG INJ VIAL IVP SCH (09:49)
[2023-03-04] MEDS: MULTIVITAMIN 1 TAB GT SCH (09:54)
[2023-03-04] MEDS: DOCUSATE 100 MG/10 ML UDC GT SCH ×2 (09:54→21:52)
[2023-03-04] MEDS: PROPRANOLOL 20 MG TAB PO SCH ×2 (09:55→21:53)
[2023-03-04] MEDS: THIAMINE 100 MG TAB GT SCH (09:56)
[2023-03-04] MEDS: POTASSIUM CHLORIDE 20% 40 MEQ/15 ML UDC GT PRN (09:56)
[2023-03-04] MEDS ORDERED: CLON1TAB11 PO (11:39)
[2023-03-04] MEDS: levoFLOXacin 500 MG TAB PO SCH (12:04)
[2023-03-04] MEDS: SULFAMETH/TRIMETH DS 800/160MG 1 TAB PO SCH ×2 (12:04→21:52)
[2023-03-04] MEDS: SKINTEGRITY HYDROGEL TP SCH (13:02)
[2023-03-04] MEDS: GAUZE TP SCH (13:02)
--- NOTE | 2023-03-04 13:45 | NUR ---
FNS CONSULT FROM CARPENTER APPRENTICE REGARDING PATIENT BOLUS FEEDING RECOMMENDATIONS: SUSAN RECOMMENDS JEVITY 1.5 2 CARTONS AT 8AM, 1 CARTON AT 12PM AND 2 CARTONS AT 4PM WITH FWF OF 150ML BEFORE AND AFTER EACH BOLUS FEEDING. THIS WILL PROVIDE 1,775 CALORIES, 76 GRAMS OF PROTEIN AND 1800ML OF WATER. YESI COX RD
--- NOTE | 2023-03-04 17:56 | NUR ---
DR. LOREDO PLACE DISCHARGE ORDER FOR PATIENT IN STABLE CONDITION TO GO HOME WITH HOME HEALTH. OUTSIDE SOLAR SALES CONSULTANT HELP SET UP FOR HOME HEALTH AND OTHER CARE EQUIPMENT. STICKER MACHINE OPERATOR HELP PLACE G-TUBE FEED FORMULA; & NURSE TAUGHT SIGNIFICANT OTHER HOW TO CHANGE G-TUBE DRESS, CHECK RESIDUAL, AND FLUSH G-TUBE. PATIENT'S DISCHARGE DOCUMENT IS READY TO GO WHEN PATIENT IS READY TO LEAVE. WILL CONTINUE TO MONITOR Addendum: 03/04/23 at 1941 by Jena Ruiz RN ENDORSE PATIENT IN STABLE CONDITION TO PM SHIFT NURSE WHILE PIV R. HAND 22g & R. WRIST 20G SALINE LOCK. DISCHARGE DOCUMENT READY FOR D/C PATIENT.
--- NOTE | 2023-03-04 19:36 | NUR ---
per endorsed to me by jason mayer the pt will discharge drew. not tonight because pt iv abx dc and shifted to oral - will observe if hte pt will tolerate the oral med .
[2023-03-04] MEDS ORDERED: VANCOMYCIN 1,000 MG in DEXTROSE 5% 250 ML IV SCH (20:00)
[2023-03-05] VITALS (9 sets, daily range): BP systolic 116–121; BP diastolic 53–60; PULSE 75–86; RESP 18–21; TEMP 97.5–98.6; O2SAT 94–98
--- NOTE | 2023-03-05 | NUR ---
ROUNDS , NO S/SX OF ACUTE DISTRESS NOTED , WILL CONT. TO MONITOR .
[2023-03-05] MEDS: Z-GUARD PASTE TP SCH ×2 (01:00→14:33)
--- NOTE | 2023-03-05 04:00 | NUR ---
ROUNDS , NO S/SX OF ACUTE DISTRESS NOTED .
[2023-03-05 06:33] LABS: BASOPHILS % (AUTO) 0.3 % (0.0-2.0); EOSINOPHILS # (AUTO) 0.3 K/uL (0-0.4); EOSINOPHILS % (AUTO) 3.8 % (0.0-4.0); HEMATOCRIT 33.4 % (36-52); LYMPHOCYTES # (AUTO) 2.4 K/uL (2.0-11.5); LYMPHOCYTES % (AUTO) 28.1 % (20.5-51.1); MEAN CORPUSCULAR HEMOGLOBIN 27 pg (27-31); MEAN CORPUSCULAR HGB CONC 33 g/dL (33-37); MEAN CORPUSCULAR VOLUME 81.4 fL (80-94); MONOCYTES % (AUTO) 11.2 % (1.7-9.3); NEUTROPHILS # (AUTO) 4.9 K/uL (1.8-7.7); NEUTROPHILS % (AUTO) 56.6 % (42.2-75.2); PLATELET COUNT (AUTO) 375 K/uL (140-450); RED CELL DISTRIBUTION WIDTH 15.5 % (11.6-13.7); WHITE BLOOD COUNT (AUTO) 8.6 K/uL (4.8-10.8)
[2023-03-05 06:44] LABS: ALBUMIN 2.4 g/dL (3.4-5.0); ANION GAP 13.7 (8-16); CARBON DIOXIDE 24.9 mmol/L (21-32); CREATININE 0.6 mg/dL (0.6-1.3); POTASSIUM 3.6 mmol/L (3.5-5.1); TOTAL BILIRUBIN 0.5 mg/dL (0.0-1.0)
--- NOTE | 2023-03-05 07:14 | NUR ---
AWAKE , ENDORSED PT FOR CONT. OF CARE .
--- NOTE | 2023-03-05 07:24 | NUR ---
receive the patinet from the retail shift leader rn in rm 108B aox2-3 with episode of confusion admitting diagnosis of sepsis . will continue to monitor
[2023-03-05] MEDS: BUDESONIDE 0.25 MG/2 ML NEBU INH SCH ×2 (07:30→19:30)
[2023-03-05] MEDS: MULTIVITAMIN 1 TAB GT SCH (09:16)
[2023-03-05] MEDS: PROPRANOLOL 20 MG TAB PO SCH ×2 (09:16→21:42)
[2023-03-05] MEDS: SULFAMETH/TRIMETH DS 800/160MG 1 TAB PO SCH ×2 (09:16→21:42)
[2023-03-05] MEDS: THIAMINE 100 MG TAB GT SCH (09:16)
[2023-03-05] MEDS: levoFLOXacin 500 MG TAB PO SCH (09:17)
[2023-03-05] MEDS: DOCUSATE 100 MG/10 ML UDC GT SCH ×2 (09:19→21:41)
[2023-03-05] MEDS: SKINTEGRITY HYDROGEL TP SCH (13:00)
[2023-03-05] MEDS: GAUZE TP SCH (13:00)
[2023-03-05] MEDS ORDERED: ALBUTEROL SULFATE/IPRATROPIU 3 ML SOL IH SCH (13:00)
[2023-03-05] MEDS: ALBUTEROL SULFATE/IPRATROPIU 3 ML SOL IH SCH ×2 (13:45→19:54)
[2023-03-05] MEDS: LORazepam 2 MG/ML VIAL IM/IVP PRN ×2 (14:29→21:53)
--- NOTE | 2023-03-05 16:40 | NUR ---
admitted the patient from emergency room in rm 124B aox4 with admitting diagnosis of congestive heart failure exacerbation . will continue to monitor Addendum: 03/05/23 at 1936 by JULIANN WITT RN wrong patient
--- NOTE | 2023-03-05 17:27 | NUR ---
patient complain of pain . norco was administered . will continue to monitor Addendum: 03/05/23 at 1936 by JULIANN WITT RN wrong patient
--- NOTE | 2023-03-05 19:22 | NUR ---
will endorse to director market intelligence rn Jian for continuity of care . will be discharge to home with home health for hospital bed , bed side commode , gastric tube amenities are needed before discharge
[2023-03-05] MEDS ORDERED: BUDESONIDE 0.25 MG/2 ML NEBU INH SCH (19:30)
--- NOTE | 2023-03-05 19:30 | NUR ---
RECEIVED PT FROM AM NURSE FOR CONTINUITY OF CARE. PATIENT IS STABLE
--- NOTE | 2023-03-05 19:54 | NUR ---
PT REFUSED TO TAKE BREATHING TXN - TRIED MASK, MOUTHPIECE, AND BLOW-BY. ASSESSED PT AND FOUND BREATH SOUNDS WERE CLEAR AND A BIT DIMINISHED, NO RESPIRATORY DISTRESS NOTED BREATHING PATTERN AND DEPTH WERE NORMAL. PT O2 SATURATION IS 94% ON ROOM AIR. NO TXN WAS GIVEN AT THIS TIME. PT SEEMED A BIT MORE CONFUSED THAN YESTERDAY, BUT OTHERWISE OK. WILL CONTINUE TO MONITOR PT.
[2023-03-06] MEDS: Z-GUARD PASTE TP SCH ×2 (01:17→13:20)
[2023-03-06 01:50] VITALS: PULSE 85; RESP 20; O2SAT 98
[2023-03-06] MEDS: LORazepam 2 MG/ML VIAL IM/IVP PRN (03:31)
[2023-03-06 04:00] VITALS: BP 130/80; PULSE 84; RESP 18; TEMP 97.4; O2SAT 95
[2023-03-06 06:59] LABS: ALBUMIN 2.7 g/dL (3.4-5.0); ANION GAP 13.9 (8-16); CARBON DIOXIDE 26.1 mmol/L (21-32); CREATININE 0.8 mg/dL (0.6-1.3); TOTAL BILIRUBIN 0.4 mg/dL (0.0-1.0)
[2023-03-06] MEDS: ALBUTEROL SULFATE/IPRATROPIU 3 ML SOL IH SCH ×2 (07:00→12:40)
[2023-03-06 07:02] LABS: BASOPHILS % (AUTO) 0.4 % (0.0-2.0); EOSINOPHILS # (AUTO) 0.3 K/uL (0-0.4); HEMATOCRIT 34.3 % (36-52); HEMOGLOBIN 11.5 g/dL (12.0-18.0); LYMPHOCYTES # (AUTO) 2.8 K/uL (2.0-11.5); LYMPHOCYTES % (AUTO) 28.3 % (20.5-51.1); MEAN CORPUSCULAR HEMOGLOBIN 27 pg (27-31); MEAN CORPUSCULAR HGB CONC 34 g/dL (33-37); MEAN CORPUSCULAR VOLUME 79.9 fL (80-94); MONOCYTES # (AUTO) 1.1 K/uL (0.8-1.0); MONOCYTES % (AUTO) 11.1 % (1.7-9.3); NEUTROPHILS # (AUTO) 5.6 K/uL (1.8-7.7); NEUTROPHILS % (AUTO) 57.2 % (42.2-75.2); PLATELET COUNT (AUTO) 406 K/uL (140-450); RED CELL DISTRIBUTION WIDTH 15.6 % (11.6-13.7); WHITE BLOOD COUNT (AUTO) 9.7 K/uL (4.8-10.8)
--- NOTE | 2023-03-06 07:10 | NUR ---
PT SLEEPING, WILL RETURN LATER FOR BREATHING TREATMENT. EQUAL CHEST RISE, NO DISTRESS NOTED. WILL CONTINUE TO MONITOR.
--- NOTE | 2023-03-06 07:14 | NUR ---
ENDORSED PT TO AM NURSE FOR CONTINUITY OF CARE.PT IS STABLE
[2023-03-06] MEDS: BUDESONIDE 0.25 MG/2 ML NEBU INH SCH (07:15)
[2023-03-06 08:00] VITALS: PULSE 80; RESP 18; RESP 20; TEMP 97.4; O2SAT 95; O2SAT 96
[2023-03-06 08:56] VITALS: O2SAT 98
[2023-03-06] MEDS: levoFLOXacin 500 MG TAB PO SCH (10:33)
[2023-03-06] MEDS: DOCUSATE 100 MG/10 ML UDC GT SCH (10:33)
[2023-03-06] MEDS: THIAMINE 100 MG TAB GT SCH (10:33)
[2023-03-06] MEDS: SULFAMETH/TRIMETH DS 800/160MG 1 TAB PO SCH (10:34)
[2023-03-06] MEDS: MULTIVITAMIN 1 TAB GT SCH (10:34)
[2023-03-06] MEDS: PROPRANOLOL 20 MG TAB PO SCH (10:35)
[2023-03-06] MEDS ORDERED: CLON1TAB11 PO (12:06)
[2023-03-06] MEDS ORDERED: SULF-954 PO (12:09)
[2023-03-06] MEDS ORDERED: LACT1CAP81 PO (12:09)
[2023-03-06] MEDS ORDERED: LEVO-481 PO (12:09)
--- NOTE | 2023-03-06 12:40 | NUR ---
PT CLEAR ON AUSCULTATION, SATURATION 96%. NO DISTRESS NOTED AND READY TO GO HOME. WILL CONTINUE TO MONITOR.
--- NOTE | 2023-03-06 12:56 | NUR ---
RD LEFT SUPPLEMENT PO EXAMPLE AT BEDSIDE PER RN FOR PATIENT. WAS NOT IN THE ROOM. -YESI COX RD
[2023-03-06] MEDS: GAUZE TP SCH (13:21)
[2023-03-06] MEDS: SKINTEGRITY HYDROGEL TP SCH (13:22)
--- NOTE | 2023-03-06 13:35 | NUR ---
03/06/23 RD FOLLOW UP COMPLETED PLEASE REFER TO NUTRITION ASSESSMENT UNDER CARE ACTIVITY FOR ESTIMATED NUTRITIONAL NEEDS. 1. CONTINUE MECHANICAL SOFT DIET TOLERATED 2. RD GAVE BOLUS FEEDING RECOMMENDATION FOR PATIENTS DISCHARGE ON 03/04/23. 3. RD RECOMMENDS ROSA BID FOR HEALING WOUNDS WHICH WILL PROVIDE 160 CALORIES AND 5 GRAMS OF PROTEIN. 4. RD TO FOLLOW-UP 3-5 DAYS, MODERATE RISK YESI COX, RD
[2023-03-06 16:00] VITALS: BP 130/80; PULSE 73; RESP 20; TEMP 98.7; O2SAT 98
--- NOTE | 2023-03-06 16:19 | NUR ---
[facility] PICKING PATIENT IN STABLE CONDITION FOR HOME, DISCHARGE INSTRUCTION GIVE TO SIGNIFICANT OTHER PRIOR EMT ARRIVE. , SHAQ SIGN DISCHARGE CONSENT. [place], IV ACCESS, & WRIST BAND REMOVE BEFORE PATIENT BE BOOK EDITOR FOR HOME. NURSE TAUGHT SIGNIFICANT OTHER ON HOW TO PROVIDE G-TUBE FEEDING, CHANGE G-TUBE DRESS, AND PLACE Z-GUARD AFTER CHANGE PATIENT'S UNDER BRIEF. HOME HEALTH WILL F/U PATIENT'S WOUND CARE.
[2023-03-08] MEDS ORDERED: DOCU-299 PO (15:37)
[2023-03-08] MEDS ORDERED: THIA100T45 PO (15:37)
[2023-03-08] MEDS ORDERED: PROP20TA29 PO (15:37)
[2023-03-08] MEDS ORDERED: PUL.25N NEB (15:37)
[2023-03-08] MEDS ORDERED: FAMO-90 PO (15:37)
[2023-03-08] MEDS ORDERED: SENN-72 PO (15:37)
== END 2023-03-06 16:25 | disposition home health service (06) | DRG 871 ==
LOC: MED 18:43 → MTU 23:20 → MED 23:22 → MTU 02-28 00:25
PROVIDERS: ADMIT Internal Medicine; ATTEND Internal Medicine
DX: A41.9 Sepsis, unspecified organism (principal); E43 Unspecified severe protein-calorie malnutrition; J69.0 Pneumonitis due to inhalation of food and vomit; J96.01 Acute respiratory failure with hypoxia; R65.20 Severe sepsis without septic shock; L89.629 Pressure ulcer of left heel, unspecified stage; L89.159 Pressure ulcer of sacral region, unspecified stage; I10 Essential (primary) hypertension; Z20.822 Contact with and (suspected) exposure to COVID-19; I25.10 Atherosclerotic heart disease of native coronary artery without angina pectoris; K21.9 Gastro-esophageal reflux disease without esophagitis; R13.10 Dysphagia, unspecified; D63.8 Anemia in other chronic diseases classified elsewhere; K59.00 Constipation, unspecified; E83.42 Hypomagnesemia; J43.9 Emphysema, unspecified; Z87.820 Personal history of traumatic brain injury; Z93.1 Gastrostomy status; Z68.22 Body mass index [BMI] 22.0-22.9, adult
CPT/HCPCS: 36415; 70450; 71045; 71250; 73630; 73700; 80053; 80202; 81001; 82550; 82553; 83605; 83735; 83880; 84100; 84484; 85025; 85610; 85730; 87040; 87070; 87081; 87086; 87205; 92526; 93925; 93970; 94640; 96361; 96365; 99291; 99292; A6248; C9113; J2060; J2543; J3370; J7060; J7626; Q0092

== ENCOUNTER 2024-03-26 21:25 | Emergency (ER) | payer OTHER, MEDICAID ==
[~2024-03-26] VITALS: Ht 175.3 cm; Wt 70.3 kg
[~2024-03-26 21:25] MED LIST: ACET-8905 PO; ALBU0.5S1 NEB; CLON1TAB11 PO; DOCU-299 PO; FAMO-90 PO; LACT1CAP81 PO; LEVO-481 PO; MULT-2171 PO; PROP20TA29 PO; PUL.25N NEB; SENN-72 PO; SULF-954 PO; THIA100T45 PO; [UNRECOGNIZED DRUG - CODE] INH
[2024-03-26 21:30] VITALS: BP 144/80; PULSE 78; RESP 18; TEMP 97.4; O2SAT 95
[2024-03-26 22:35] LABS: BASOPHILS # (AUTO) 0.1 K/uL (0.00-0.22); BASOPHILS % (AUTO) 0.7 % (0.0-2.0); EOSINOPHILS # (AUTO) 0.4 K/uL (0-0.4); EOSINOPHILS % (AUTO) 5.7 % (0.0-4.0); HEMOGLOBIN 11.2 g/dL (12.0-18.0); LYMPHOCYTES # (AUTO) 1.9 K/uL (2.0-11.5); LYMPHOCYTES % (AUTO) 25.9 % (20.5-51.1); MEAN CORPUSCULAR HEMOGLOBIN 27 pg (27-31); MEAN CORPUSCULAR HGB CONC 32 g/dL (33-37); MEAN CORPUSCULAR VOLUME 85.2 fL (80-94); MONOCYTES # (AUTO) 0.9 K/uL (0.8-1.0); MONOCYTES % (AUTO) 11.9 % (1.7-9.3); NEUTROPHILS % (AUTO) 55.8 % (42.2-75.2); PLATELET COUNT (AUTO) 352 K/uL (140-450); RED BLOOD CELL COUNT(AUTO) 4.11 MIL/uL (4.20-6.10); RED CELL DISTRIBUTION WIDTH 15.4 % (11.6-13.7); WHITE BLOOD COUNT (AUTO) 7.2 K/uL (4.8-10.8)
[2024-03-26 22:44] LABS: ANION GAP 8.6 (8-16); CALCIUM 9.1 mg/dL (8.5-10.1); CARBON DIOXIDE 33.9 mmol/L (21-32); CREATININE 0.6 mg/dL (0.6-1.3); POTASSIUM 3.5 mmol/L (3.5-5.1)
[2024-03-26 22:49] LABS: BILIRUBIN,DIRECT 0.1 mg/dL (0.0-0.3); TOTAL BILIRUBIN 0.2 mg/dL (0.0-1.0); TOTAL PROTEIN, SERUM 7.9 g/dL (6.4-8.2)
[2024-03-27 02:43] VITALS: BP 130/72; PULSE 76; RESP 17; TEMP 98.2; O2SAT 96
== END 2024-03-27 02:43 ==
LOC: MED 21:25
DX: K63.89 Other specified diseases of intestine (principal); I10 Essential (primary) hypertension; J44.9 Chronic obstructive pulmonary disease, unspecified; J96.10 Chronic respiratory failure, unspecified whether with hypoxia or hypercapnia; Z93.1 Gastrostomy status; Z79.1 Long term (current) use of non-steroidal anti-inflammatories (NSAID); Z79.899 Other long term (current) drug therapy; Z79.2 Long term (current) use of antibiotics
CPT/HCPCS: 36415; 80048; 80076; 83605; 83690; 85025; 99285